=== PATIENT | female | born 1965 | race American Indian/Alaskan Native ===

== ENCOUNTER 2016-10-14 15:36 | Outpatient (CLI) | payer OTHER ==
--- NOTE | 2016-10-15 07:50 | XRay Report ---
LUMBOSACRAL SPINE, 3 VIEWS: History: Back pain, right sided sciatica. Findings: No comparison. Minimal levoscoliosis is identified in the lumbar spine. Mild multilevel degenerative end plate spurring without significant loss of disc height is demonstrated. There is mild to moderate diffuse facet arthropathy. No evidence for compression deformity, subluxation or bone lesion. Mild symmetric degenerative changes in the SI joints. Impression: Mild levoscoliosis with mild to moderate lumbar spondylosis. No acute process. If radicular symptoms are present, further evaluation with MRI lumbar spine without contrast is recommended.
== END 2016-10-14 15:37 | disposition home or self-care (01) ==
LOC: XRAY 15:36
PROVIDERS: ATTEND Internal Medicine
DX: Z02.71 Encounter for disability determination (principal); M47.896 Other spondylosis, lumbar region; M41.86 Other forms of scoliosis, lumbar region; M12.88 Other specific arthropathies, not elsewhere classified, other specified site
CPT/HCPCS: 72100

== ENCOUNTER 2018-01-05 11:00 | Outpatient (CLI) | payer OTHER | END 2018-01-05 11:01 | disposition home or self-care (01) | LOC: SLR 11:00 | PROVIDERS: ATTEND Otolaryngology | DX: G47.33 Obstructive sleep apnea (adult) (pediatric) (principal); R40.0 Somnolence; R06.83 Snoring | CPT/HCPCS: G0399 ==

== ENCOUNTER 2018-01-26 11:00 | Outpatient (CLI) | payer OTHER | END 2018-01-26 11:01 | disposition home or self-care (01) | LOC: SLR 11:00 | PROVIDERS: ATTEND Otolaryngology | DX: G47.33 Obstructive sleep apnea (adult) (pediatric) (principal); R40.0 Somnolence; R06.83 Snoring | CPT/HCPCS: 95811 ==